=== PATIENT | male | born 1935 | race Caucasian/White ===

== ENCOUNTER 2017-02-12 14:54 | Inpatient (IN) | payer MEDICARE, OTHER ==
[~2017-02-12] VITALS: Ht 175.3 cm; Wt 73.1 kg
[2017-02-12] MEDS ORDERED: PLAV1TAB2 PO (15:06)
[2017-02-12] MEDS ORDERED: NIAC250T3 PO (15:06)
[2017-02-12] MEDS ORDERED: LIPI10TA PO (15:06)
[2017-02-12] MEDS ORDERED: METO1TAB32 PO (15:06)
[2017-02-12] MEDS ORDERED: FOLI5INJ2 SC (15:06)
[2017-02-12] MEDS ORDERED: ECOT81TA5 PO (15:06)
[2017-02-12] MEDS ORDERED: PRESCAP PO (15:06)
[2017-02-12] MEDS ORDERED: VITA100067 PO (15:06)
[2017-02-12] MEDS ORDERED: LEVO50TA5 PO (15:06)
[2017-02-12] MEDS ORDERED: FISH1000 PO (15:06)
[2017-02-12] MEDS ORDERED: VITA100T20 PO (15:06)
[2017-02-12] MEDS ORDERED: VITA400C97 PO (15:06)
[2017-02-12] MEDS ORDERED: NS 500 ML IV ONE (15:30)
[2017-02-12] MEDS: NS 1,000 ML IV SCH (15:45)
[2017-02-12 15:49] LABS: BASO % 0.3 % (0.0-1.0); EOS # 0.2 K/mm3 (0.0-0.50); EOS % 1.5 % (0.0-3.0); LARGE UNSTAINED CELL # 0.1 K/mm3 (0.0-0.4); LARGE UNSTAINED CELL % 0.7 % (0.0-4.0); LYMPH # 0.7 K/mm3 (1.5-4.5); LYMPH % 7.6 % (24.0-44.0); MEAN CORPUSCULAR HEMOGLOBIN 29.6 pg (27.0-33.0); MEAN CORPUSCULAR HGB CONC 32.5 g/dl (32.0-36.5); MEAN CORPUSCULAR VOLUME 91.1 fl (80.0-96.0); MONO # 0.5 K/mm3 (0.0-0.8); NEUTROPHILS # 8.2 K/mm3 (1.8-7.7); NEUTROPHILS % 84.8 % (36.0-66.0); PLATELET COUNT, AUTOMATED 263 k/mm3 (150-450); RED CELL DISTRIBUTION WIDTH 14.4 % (11.5-14.5); WHITE BLOOD COUNT 9.7 K/mm3 (4.0-10.0)
[2017-02-12 15:56] LABS: INR 1.11
[2017-02-12 16:20] LABS: ALBUMIN 3.5 GM/DL (3.2-5.2); ALBUMIN/GLOBULIN RATIO 0.92 (1.00-1.93); ALKALINE PHOSPHATASE 125 U/L (45-117); ALT/SGPT 28 U/L (12-78); AMYLASE 52 U/L (25-115); ANION GAP 9 MEQ/L (8-16); AST/SGOT 22 U/L (15-37); BILIRUBIN,DIRECT 0.2 MG/DL (0.0-0.2); BILIRUBIN,TOTAL 0.6 MG/DL (0.2-1.0); BLOOD UREA NITROGEN 21 MG/DL (7-18); CARBON DIOXIDE LEVEL 27 MEQ/L (21-32); CHLORIDE LEVEL 102 MEQ/L (98-107); CREATININE FOR GFR 1.27 MG/DL (0.70-1.30); GLOMERULAR FILTRATION RATE 57.8 (>35); GLUCOSE, FASTING 116 MG/DL (83-110); POTASSIUM SERUM 4.6 MEQ/L (3.5-5.1); SODIUM LEVEL 138 MEQ/L (136-145); TOTAL PROTEIN 7.3 GM/DL (6.4-8.2)
[2017-02-12] MEDS ORDERED: ISOVUE-370 76% 100ML VIAL (Q9967) As Ordered ONE (16:25)
--- NOTE | 2017-02-12 16:28 | REP ---
Acute abdominal series three views and PA chest and supine and upright abdomen: PA chest: Comparison is 01/14/2016. There is an indwelling central venous catheter entering from left with the tip in the superior vena cava, unchanged. The lung barrientos are clear. Cardiac size is normal. The mariama, mediastinum, and bony thorax are unchanged. There is no free subdiaphragmatic air. Impression: No acute cardiopulmonary findings. Indwelling central venous catheter. Abdomen, supine and upright views: There are no comparisons. There are dilated small bowel loops with multiple air-fluid levels. This is nonspecific and could represent ileus or obstruction. 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 Impression: Ileus versus small bowel obstruction. Signed by Zeb Meneses MD 02/12/2017 04:19 P
--- NOTE | 2017-02-12 17:07 | REP ---
CT of the abdomen and pelvis with IV contrast, without bowel contrast: There is a 87.6 cm mass centrally in the mesentery tethering of bowel loops. The proximal and mid jejunal loops are dilated and contain multiple air-fluid levels. The distal ileal loops are not dilated. Findings are compatible with small bowel obstruction. The colon is not dilated. However, there is wall thickening of the ascending colon, particularly at the hepatic flexure. This is nonspecific and could represent colitis or possibly neoplasm. The visualized lung barrientos are unremarkable. The hepatic parenchyma, gallbladder, pancreas and spleen are unremarkable. The adrenals, kidneys and abdominal aorta are unremarkable. There is no periaortic adenopathy. There is no ascites. No mesenteric adenopathy. Pelvis: There is a sigmoid and descending colon diverticulosis without diverticulitis. There is no ascites. The bladder is unremarkable. There is no pelvic adenopathy. There are heavy trabeculae throughout the sacrum interspersed with lucencies. This is nonspecific and could represent metastatic disease or possibly Paget's disease. 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 There is obstruction of the mid and proximal small bowel. The distal ileal loops are not dilated. There is an abnormal mucosal pattern of the colonic hepatic flexure which could represent neoplasm or colitis. No ascites or adenopathy. Unusual trabecular pattern of the sacrum which could be Paget's disease or metastatic disease. Signed by Zeb Meneses MD 02/12/2017 04:58 P
[2017-02-12] MEDS ORDERED: MORPHINE 2 MG/ML 1ML SYRINGE IV ONE (17:15)
[2017-02-12] MEDS ORDERED: ONDANSETRON 4MG/2ML VIAL (J2405) IV PRN (18:15)
--- NOTE | 2017-02-12 18:29 | ECGEPIP ---
Stationary ECG Study [facility] - ED Test Date: 2017-02-12 Pat Name: BIJAL BOWLES Department: Room: - Gender: M Activity Manager: rn : 1935 Requested By: ANJUM ANDUJAR Order Number: [id number] Reading MD: Karen Dowd Measurements Intervals [place] Rate: 88 P: 60 PA: 218 QRS: 13 QRSD: 130 T: 94 QT: 367 QTc: 446 Interpretive Statements SINUS RHYTHM WITH FIRST DEGREE AV BLOCK LEFT BUNDLE BRANCH BLOCK INCREASED RATE 01/14/16 Electronically Signed On 02-12-2017 18:28:57 EDT by Karen Dowd
[2017-02-12] MEDS ORDERED: NIAC500T5 PO (19:15)
[2017-02-12] MEDS ORDERED: VITA500T53 PO (19:15)
[2017-02-12] MEDS ORDERED: FOLI1TAB4 PO (19:15)
[2017-02-12 20:25] VITALS: BP 158/68
[2017-02-12] MEDS: PANTOPRAZOLE 40MG INJ (PROTONIX) (C9113) IV SCH (20:58)
[2017-02-12] MEDS: MORPHINE 2 MG/ML 1ML SYRINGE IV PRN (20:59)
[2017-02-12] MEDS: HEPARIN SOD (PORCINE) 5000 UNITS/ML VIAL SC SCH (20:59)
--- NOTE | 2017-02-12 22:02 | HPEPDOC ---
General Date of Admission Feb 12, 2017 at 18:05 Other Providers Consults: Dr. Zeb Ceballos of General Surgery Attending Physician: LACY BIRD MD Chief Complaint The patient is a 81-year-old male admitted with a reason for visit of Mesenteric Mass,Sbo(Small Bowel Obstruction). Source: Patient History of Present Illness PRIMARY CARE PROVIDER: Dr. Shanita Benites ([phone]) in [place], [place] CHIEF COMPLAINT: abdominal pain HISTORY OF PRESENT ILLNESS: Mr. Norman is an 81 year old gentleman from [place] ([facility] [place] [facility] who presents to the [facility] ED for worsening and uncontrolled abdominal pain. It first began on Tuesday night. States he also had it most of the day Tuesday. Then, in the late afternoon on Tuesday , it became better. All day , he denies having abdominal pain. Tuesday evening, patient began to have the abdominal pain again, which was constant and did not improve. Abdominal pain was an 8-9/10 in intensity, located in center of the stomach with no radiation of the pain, burning and aching in quality, and made him feel sick to his stomach. Patient states it began at 10:30 PM Tuesday evening, he went to bed, could not sleep due to the pain in his stomach. He then, sat up in his chair and couch, got up, walked around, but the pain would not subside. States he also did not eat anything much Tuesday as he could not tolerate PO. He also states that he took two painkillers (does not recall the name) which did not help with the pain. He then proceeded to call his family , called his brother, and his nephew brought him to the ED around 2:30 PM today. In addition, he states around 1:30 PM, he became real hot and clammy, started sweating and having dizziness before coming here. Denied nausea, but had nausea later in the ED when I was interviewing patient, and had a bout of bilious emesis after NG tube placement. ROS: Tuesday, admits he had diarrhea and had several bowel movements which were nonbloody. States last BM was Tuesday, however, he tried to pass stool on Tuesday, but all he got was a little watery stool/"diarrhea". Denies fevers, chills, chest pain, SOB, nausea currently but was nauseous earlier, vomiting before and after his one bout of emesis in the ED after NG tube placement, hemoptysis, hematemesis, edema, dysuria, hematuria. Admits to a ~25 lbs weight loss from July 2016 until now. States that he used to weigh 182 lbs and was steady at this weight and last he remembers is he was ~160 lbs. States he believes he is now below this weight. Recalls that every time he went to his PCP 's office, he dropped weight. It was a gradual weight loss and not immediate such as occurring over the course of the month. He denies night sweats. He admits to a recent loss of appetite. In the ED, they gave 2 mg morphine sulfate after which patient states his pain improved a bit and came down to about a 2/10. He was also administered a 500 mL bolus of normal saline, and then placed on normal saline IVF @ 100 mLs/hr. There is a backstory to that which is stated above. However, exact timeline of events/events may be inaccurately stated as I do not have medical records from [place] for patient and patient fluctuates back and forth in his story as to when certain events occurred. Please see below: In 2010, patient states he had lymph nodes in his R side of his neck and had Non -Hodgkin's lymphoma for which he underwent chemotherapy (has a chemo port on his L upper chest) and radiation. Now, he is in remission for that supposedly. Then, he states, he periodically underwent several CT and PET scans, during which they eventually found 3 lymph nodes in the abdomen (believes this was during a PET scan in 2012). States that this was followed with scans periodically, and every time, the lymph nodes measured to be bigger in cm size. Then, he had a CT scan of the abdomen in October 2015 and results in November 2015 had shown the lymph nodes were even bigger. He then told his oncologist that he would like to go up to visit his [facility] [place], but his oncologist decided to give him 20 treatments of radiation before he went. The radiation treatments occurred in November and ended in December 2015. Then, he came up to his [facility]. During the summertime December 2015, patient began to notice stomach problems: no appetite, stomach pain, and same symptoms as he is suffering through now. States before the radiation therapy, he did not have any of these symptoms. In addition, in March 2016, he went back to [place] and another PET scan was done, which did not seem to change. His oncologist wanted him to get another scan in 5 weeks, however, he went to his family doctor, who told him she thought he should get a 2nd opinion. He then went to another oncologist who wanted to identify a diagnosis of the lymph nodes in the abdomen. In March/April of 2016, the 2nd oncologist decided to do 3 needle biopsies of the abdominal lymph nodes which turned out to be negative/indefinitive. Patient then started having severe abdominal pain and his PCP admitted him to [facility] in July 2016, where his PCP arranged a diagnostic laparoscopy with surgeon who took several tissue samples which were negative for cancer. Laparascopy seems to have been done August 2016 according to patient. After discharge from hospital, in July 2016, CT scans were done and a PET scan was done. 2nd oncologist told him that he had scar tissue wrapped around his small intestine and there was a large mass in there. States "scope"(likely diagnostic laparascopy) was done in August 2016 in which several tissue samples were negative. Please note: there may have only been one "scope" as patient does not recall exact timeline of events. Then, PCP told patient that there was nothing much that they could do, and stated that if he could eat and go to the bathroom , that was the best that they could expect. 2nd oncologist also told him that he had to live with it. Surgeon told him that he could not operate on it. 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, in remission Patient offers no other medical conditions--please refer to medication list below for likely PMH until we can obtain further records PAST SURGICAL HISTORY: Cardiac Stent in 2006 Diagnostic Laparoscopy August 2016 MEDICATIONS: Plavix 75 mg Lipitor Synthroid Folic Acid Niacin Protonix Fish oil Vitamin B12 Vitamin D Vitamin E Aspirin 81 mg Preser vision Metoprolol Please see below for dosages and frequency ALLERGIES: Denies SOCIAL HISTORY: Smoked <1 PPD x 35 years Quit smoking 23 years ago EtOH: was never heavy drinker, will drink socially No illicit drug use No pets 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 Will be residing at his brother's house locally now with his who has Alzheimer's disease Comes up to [place] during [place] to his summer cottage Lives in [place] FAMILY HISTORY: Father: Parkinson's disease, CVA Mother: Type 2 DM, amputations, heart disease Brother: 85 yo, Type I diabetes, 2 open heart surgeries, 2 shoulder operations, abdominal hernia repair CODE STATUS: FULL CODE REVIEW OF SYSTEMS: All ROS were negative except for those as stated above in HPI. PHYSICAL EXAMINATION: Please see VS and PE below. Patient was afebrile and his VSS were stable LABORATORY DATA: WBC 9.7, Hgb 12, Hct 37, platelets 263, RBC 4.06, Neut% 84.8, Lymph% 7.6, Neut # 8.2, lymph# 0.7. BUN 21, Cr 1.27, GFR 57.8, glucose 116, lactic acid 1.3, alkaline phosphatase 125, amylase 52, lipase 129, troponin I <0.02, PT 14.5, INR 1.11, APTT 34.8 UA: 1+ protein, trace ketones, 9 RBCs, 1+bacteria, 1 squamous epithelial cell, small mucous MICROBIOLOGY: Blood cx x 2 pending Urine cx pending ELECTROCARDIOGRAM: Sinus rhythm with first degree AV block, old L bundle branch block, rate 88 bpm , AL interval 218 ms, QRS duration 130 ms, QTc 413 ms, no acute ST-T wae changes Similar to prior EKG on 01/13/17 RADIOLOGY: Abdominal Flat/Upright/PA Chest X-ray: No acute cardiopulmonary findings. Indwelling central venous catheter. Dilated small bowel loops with multiple air-fluid levels. R hip osteoarthritis. Impression: ileus vs. small bowel obstruction. CT abdomen/pelvis with IV contrast only: Findings compatible with small bowel obstruction. Wall thickening of the ascending colon, particularly at the hepatic flexure: is nonspecific and could represent colitis or possibly neoplasm. There is no ascites. No mesenteric adenopathy. 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 There is obstruction of the mid and proximal small bowel. The distal ileal loops are not dilated. There is an abnormal mucosal pattern of the colonic hepatic flexure which could represent neoplasm or colitis. No ascites or adenopathy. Unusual trabecular pattern of the sacrum which could be Paget's disease or metastatic disease ASSESSMENT/PLAN: This is an 81 yo M with a PMH of Nonhodgkin's lymphoma with radiation/ chemotherapy in 2010 to R neck lymph node in remission, CAD status-post stent in 2006, hypothyroidism, and possible unknown medical hx as his medical records are in [place]. Comes [facility] in [place]. He presents to [facility] ED for constant unremitting abdominal pain. CT scan findings are consistent with small bowel obstruction. CT scan of the abdomen/pelvis also shows a 7.6 cm mesenteric mass centrally in the mesentery resulting in tethering of the adjacent small bowel loops. There is obstruction of the mid and proximal small bowel. The distal ileal loops are not dilated. There is an abnormal mucosal pattern of the colonic hepatic flexure which could represent neoplasm or colitis. No ascites or adenopathy. We are admitting the patient for treatment for unrelenting abdominal pain secondary to small bowel obstruction. -Small Bowel Obstruction related to 7.6 cm central mesenteric mass resulting in tethering of adjacent small bowel loops: NPO, bowel rest, NG tube, IVF with NS @ 100 mLs/hr. Follow CBCs, BMPs, Mg daily. Morphine IV 2 mg q2h PRN pain. Zofran IV 4 mg q6h PRN nausea/vomiting. Advance diet as tolerated. Dr. Zeb Ceballos of General Surgery has been consulted and has seen patient. He informed patient that we will treat SBO with conservative measures at first. If this does not resolve bowel obstruction within 72 hours, patient will likely need to be transferred to [facility] for possible surgery for lysis of adhesions or further exploration of scar tissue of mass and surgical treatment. Blood cx and urine cx are pending. Hold all home medications for now except for metoprolol and synthroid. Highly appreciate Dr. Ceballos's input into this case. -We will continue metoprolol and synthroid, clamp NG tube to administer medication and wait half an hour to unclamp NG tube after medication administration. -Will plan to obtain medical records from [place] for accurate hx on Tuesday. Chronic Medical Problem List: CAD status-post stent in 2006 Hypothyroidism Nonhodgkin's Lymphoma (R neck lymph node) status-post radiation/chemotherapy in 2011, in remission Patient offers no other medical conditions--please refer to medication list below for likely PMH until we can obtain further records DVT ppx: SC heparin GI ppx: protonix IV Immunizations as per protocol My preceptor for this patient encounter was Dr. Lacy Bird, and was physically present in the building during the encounter and was fully available. As needed , all aspects of the patient interview, examination, medical decision making process, and medical care plan development were reviewed and approved by the preceptor. Preceptor is aware and concurs with the plan as stated in the body of this note and will attest to such by his/her cosignature. Home Medications Scheduled (Preservision Areds) 1 Cap Cap, 1 CAP PO DAILY, (Reported) Aspirin (Ecotrin Low Strength) 81 Mg Tab, 81 MG PO QHS, (Reported) Atorvastatin Calcium (Lipitor) 10 Mg Tab, 10 MG PO QHS, (Reported) Clopidogrel Bisulfate (Plavix) 75 Mg Tab, 75 MG PO DAILY, (Reported) Cyanocobalamin (Vitamin B12) 500 Mcg Tab, 500 MCG PO DAILY, (Reported) Fish Oil (Fish Oil) 1,000 Mg Cap, 1,000 MG PO DAILY, (Reported) Folic Acid (Folic Acid) 1 Mg Tab, 1 MG PO DAILY, (Reported) Levothyroxine Sodium (Synthroid) 50 Mcg Tab, 50 MCG PO DAILY, (Reported) Metoprolol Succinate (Metoprolol Succinate ER) 25 Mg Tab, 12.5 MG PO DAILY, ( Reported) Niacin (Niacin) 500 Mg Tab, 500 MG PO DAILY, (Reported) Vitamin D (Vitamin D) 1,000 Unit Cap, 1,000 UNIT PO DAILY, (Reported) Vitamin E (Vitamin E Complex) 400 Unit Cap, 400 UNIT PO DAILY, (Reported) Allergies Coded Allergies: No Known Allergies (Unverified , 02/12/17) Physical Examination General Exam: Positive: Alert, Cooperative, No Acute Distress Eye Exam: Positive: Conjunctiva & lids normal ENT Exam: Positive: Atraumatic Neck Exam: Positive: Supple, Negative: JVD, thyromegaly Chest Exam: Positive: Clear to auscultation, Negative: Rales, Rhonchi, Wheezing Heart Exam: Positive: Rate Normal, Regular Rhythm, Normal S1, Normal S2 Abdomen Exam: Positive: Normal bowel sounds, Tenderness (to palpation of mid- upper abdomen and central abdomen. No peritoneal signs. ), Other (distended abdomen with rigid palpable mass in central abdomen) Extremity Exam: Positive: Normal pulses, Negative: Clubbing, Cyanosis, Edema Skin Exam: Negative: Rash Neuro Exam: Positive: Normal Speech, Other (No focal neurologic deficits appreciated bilaterally.) Psych Exam: Positive: Mental status NL, Mood NL, Memory Intact, Oriented x 3 Vital Signs Vital Signs Date Time Temp Pulse Resp B/P (MAP) Pulse Ox O2 Delivery O2 Flow Rate FiO2 02/12/17 20:59 98.4 89 21 158/68 98 Room Air Laboratory Data Labs 24H Laboratory Tests 2 02/12/17 15:35: White Blood Count 9.7, Red Blood Count 4.06L, Hemoglobin 12.0L, Hematocrit 37.0L , Mean Corpuscular Volume 91.1, Mean Corpuscular Hemoglobin 29.6, Mean Corpuscular Hemoglobin Concent 32.5, Red Cell Distribution Width 14.4, Platelet Count 263, Neutrophils (%) (Auto) 84.8H, Lymphocytes (%) (Auto) 7.6L, Monocytes (%) (Auto) 5.0, Eosinophils (%) (Auto) 1.5, Basophils (%) (Auto) 0.3, Neutrophils # (Auto) 8.2H, Lymphocytes # (Auto) 0.7L, Monocytes # (Auto) 0.5, Eosinophils # (Auto) 0.2, Basophils # (Auto) 0.0, Large Unclassified Cells % 0.7 , Large Unclassified Cells # 0.1, Prothrombin Time 14.5, Prothromb Time International Ratio 1.11, Activated Partial Thromboplast Time 34.8, Urine Appearance CLEAR, Urine Color YELLOW, Urine pH 5.0, Urine Specific [place] 1.025 , Urine Protein 1+H, Urine Glucose (UA) NEGATIVE, Urine Ketones TRACEH, Urine Urobilinogen 0.2, Urine Bilirubin NEGATIVE, Urine Leukocyte Esterase NEGATIVE, Urine Blood NEGATIVE, Urine Nitrite NEGATIVE, Urine WBC (Auto) 2, Urine RBC ( Auto) 9H, Urine Hyaline Casts (Auto) 4, Urine Bacteria (Auto) 1+H, Urine Squamous Epithelial Cells 1, Urine Mucus (Auto) SMALL, Urine Sperm (Auto) , Anion Gap 9, Glomerular Filtration Rate 57.8, Lactic Acid Level 1.3, Calcium Level 9.0, Aspartate Amino Transf (AST/SGOT) 22, Alanine Aminotransferase (ALT/ SGPT) 28, Alkaline Phosphatase 125H, Total Bilirubin 0.6, Direct Bilirubin 0.2, Total Creatine Kinase 54, Creatine Kinase MB 1.0, Creatine Kinase MB Relative Index 1.85, Troponin I < 0.02, Total Protein 7.3, Albumin 3.5, Albumin/Globulin Ratio 0.92L, Amylase Level 52, Lipase 129 CBC/BMP Laboratory Tests 02/12/17 15:35 Red Blood Count 4.06 L, Mean Corpuscular Volume 91.1, Mean Corpuscular Hemoglobin 29.6, Mean Corpuscular Hemoglobin Concent 32.5, Red Cell Distribution Width 14.4, Neutrophils (%) (Auto) 84.8 H, Lymphocytes (%) (Auto) 7.6 L, Monocytes (%) (Auto) 5.0, Eosinophils (%) (Auto) 1.5, Basophils (%) (Auto ) 0.3, Neutrophils # (Auto) 8.2 H, Lymphocytes # (Auto) 0.7 L, Monocytes # (Auto ) 0.5, Eosinophils # (Auto) 0.2, Basophils # (Auto) 0.0 Microbiology Microbiology 02/12/17 Blood Culture, Received Pending 02/12/17 Blood Culture, Received Pending 02/12/17 Urine Culture, Received Pending Plan / VTE VTE Prophylaxis Ordered?: Yes (SC heparin) JESSENIA PANDYA OGME-1 Feb 12, 2017 21:29
[2017-02-13] MEDS: NS 1,000 ML IV SCH ×3 (03:26→22:58)
[2017-02-13 05:39] LABS: BASO % 0.1 % (0.0-1.0); EOS # 0.1 K/mm3 (0.0-0.50); EOS % 1.1 % (0.0-3.0); LARGE UNSTAINED CELL # 0.1 K/mm3 (0.0-0.4); LARGE UNSTAINED CELL % 0.9 % (0.0-4.0); LYMPH # 0.6 K/mm3 (1.5-4.5); MEAN CORPUSCULAR HEMOGLOBIN 29.6 pg (27.0-33.0); MEAN CORPUSCULAR HGB CONC 31.9 g/dl (32.0-36.5); MONO # 0.5 K/mm3 (0.0-0.8); MONO % 7.7 % (0.0-5.0); NEUTROPHILS # 5.6 K/mm3 (1.8-7.7); NEUTROPHILS % 82.2 % (36.0-66.0); PLATELET COUNT, AUTOMATED 193 k/mm3 (150-450); RED CELL DISTRIBUTION WIDTH 14.9 % (11.5-14.5); WHITE BLOOD COUNT 6.9 K/mm3 (4.0-10.0)
[2017-02-13 05:56] LABS: ANION GAP 7 MEQ/L (8-16); BLOOD UREA NITROGEN 20 MG/DL (7-18); CALCIUM LEVEL 7.7 MG/DL (8.8-10.2); CARBON DIOXIDE LEVEL 26 MEQ/L (21-32); CHLORIDE LEVEL 109 MEQ/L (98-107); CREATININE FOR GFR 1.05 MG/DL (0.70-1.30); GLOMERULAR FILTRATION RATE > 60.0 (>35); GLUCOSE, FASTING 113 MG/DL (83-110); MAGNESIUM LEVEL 2.2 MG/DL (1.8-2.4); PHOSPHORUS LEVEL 2.7 MG/DL (2.5-4.9); POTASSIUM SERUM 4.6 MEQ/L (3.5-5.1); SODIUM LEVEL 142 MEQ/L (136-145)
[2017-02-13 06:00] VITALS: BP 117/58
[2017-02-13 08:51] VITALS: BP 130/61
[2017-02-13] MEDS: METOPROLOL SUCC *XL* 25MG TAB (TopROL *XL*) PO SCH (08:53)
[2017-02-13] MEDS: LEVOTHYROXINE 50MCG TABLET (0.05MG) PO SCH (08:53)
[2017-02-13] MEDS: HEPARIN SOD (PORCINE) 5000 UNITS/ML VIAL SC SCH ×2 (08:54→20:21)
[2017-02-13 14:00] VITALS: BP 149/65
--- NOTE | 2017-02-13 19:37 | CR ---
DATE OF CONSULTATION: 02/13/2017 REASON FOR CONSULTATION: Abdominal distension. HISTORY OF PRESENT ILLNESS: Patient is an 81-year-old male who comes up from [place] to [place]. He started to have uncontrolled abdominal pain starting earlier in the week. It got slightly better by and then returned Tuesday evening. He came in to the hospital yesterday due to abdominal pain that was increasing, associated with some nausea, no vomiting. He was still passing flatus and having bowel movements, but mainly because of the increasing pain is why he came to the emergency room. On admission, his vitals were stable. Labs were normal including white count and lactic acid; however, CAT scan shows a significant mass in the center of the small bowel mesentery. After discussion, the patient states he was treated with radiation a year and one-half ago for large lymph nodes in his abdomen. He had 20 treatments of radiation for that. Since then, he has had problems with this mass forming in his mesentery. He had a laparoscopy done August of this year down in [place] because of the mass, to evaluate his small bowel and the surgeon there told him that there is nothing that could be done because of all of the tissue that was involved. Since then he has been doing okay. He has not had any problems with small bowel obstructions previous to this. No other surgeries to his abdomen. PAST MEDICAL HISTORY: 1. Coronary artery disease. 2. Hypothyroidism. 3. Non-Hodgkin's lymphoma to the right neck status post chemotherapy and radiation 2010. PAST SURGICAL HISTORY: 1. Diagnostic laparoscopy August of this year. 2. Cardiac stent placement. HOME MEDICATIONS: Please see medication reconciliation. ALLERGIES: None. SOCIAL HISTORY: Denies current drug, alcohol or tobacco abuse. FAMILY HISTORY: Noncontributory. REVIEW OF SYSTEMS: Pertinent positives and negatives as stated in the history of present illness (HPI). PHYSICAL EXAMINATION: GENERAL: Patient is awake, alert, no acute stress. VITAL SIGNS: Temperature 98, pulse 92, respirations 18, blood pressure 130/61, pulse oximetry 95% room air. HEENT: Pupils equal, round, reactive to light accommodation. HEART: S1, S2. Regular rate and rhythm. LUNGS: Clear to auscultation bilaterally. ABDOMEN: Soft, distended. Diffuse mild tenderness. No rebounding, guarding or rigidity. There is some fullness in the center of the abdomen that is hard, likely related to this mesenteric mass. EXTREMITIES: No clubbing, cyanosis or edema. LABORATORY DATA: White count 9.7, hemoglobin 12. Lactic acid 1.3, potassium 4.6. IMAGING: CT abdomen and pelvis with contrast shows an 7.6 cm mesenteric mass centrally in the mesentery resulting in tethering of the adjacent small bowel loops. There is obstruction of the mid and proximal small bowel. Distal ileal loops are not dilated. There is abnormal mucosal pattern of the colonic hepatic flexure which could represent neoplasm versus colitis. There is also unusual trabecular pattern of the sacrum which could be related to Paget's disease or metastatic disease. 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 Surgery down in [place] in August resulted in the fact that this mass was there and was involving the small bowel in that it was likely inoperable. At this time, patient is having signs of partial versus complete bowel obstruction because of this, mainly in the mid to proximal small bowel. Recommendation at this time is to treat him conservatively with IV fluids, antibiotics for possible enteritis and colitis, as well as nasogastric (NG) tube decompression. We will continue to monitor the patient closely. At this poin, I have no back up, so if he does start to develop signs of peritonitis, increasing pain, increasing lactic acid, anything that may suggest that he is having an ischemic episode that will require urgent surgery, he will need immediate transfer to a tertiary care facility. Otherwise, we will continue to treat him medically and see if he will improve on his own within the next 3-5 days. If he does not open up on his own, then we may offer him a diagnostic surgery versus transfer to a tertiary care facility. I will discuss that further with my partners once they return on Tuesday to get some of their input as well.
[2017-02-13] MEDS: PANTOPRAZOLE 40MG INJ (PROTONIX) (C9113) IV SCH (20:21)
[2017-02-13 22:00] VITALS: BP 125/59
--- NOTE | 2017-02-13 22:40 | IPN ---
DATE: 02/13/2017 SUBJECTIVE: The patient reports that he is doing better today. He tells me that his abdominal pain has improved. He has passed some gas but no bowel movement. He denies any chest pain, shortness of breath, fevers, chills, nausea or vomiting. OBJECTIVE: VITAL SIGNS: Temperature 98, pulse 92, respiratory rate 18, blood pressure 130/72. GENERAL: He is a very pleasant, elderly, man who sits up to great me as I enter the room. He does not appear to be in any acute distress. HEENT: He has a nasogastric tube draining clear serous fluid. No elevation of central venous pressure. He has moist mucous membranes. NEUROLOGIC: Cranial nerves II-XII are grossly intact. CARDIOVASCULAR: S1, S2, regular. RESPIRATORY: Clear. ABDOMEN: Bowel sounds are present but diminished. Abdomen is soft and nontender. He has a palpable midline mass in the abdomen. EXTREMITIES: No clubbing, cyanosis, or edema. LABORATORY STUDIES: WBC 6.9 down from 9.7, hemoglobin 10 down from 12, platelet count 193 down from 263. Chemistry panel: Sodium 142, potassium 4.6, chloride 109, bicarbonate 26, BUN 20, creatinine 1.0. INR is 1.1. Microbiology is currently pending. IMAGING STUDIES: The patient had abdominal x-ray which revealed ileus versus small bowel obstruction. 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 There is obstruction of the mid and proximal small bowel. The distal ileal loops are not dilated. ASSESSMENT AND PLAN: This is an 81-year-old man with a small bowel obstruction. PROBLEMS: 1. Small bowel obstruction, possibly related to numerous abdominal procedures, adhesions versus radiation. Regardless, the patient does appear to be improving with supportive measures. General surgery's help is greatly appreciated. Should the patient continue to progress, we can consider clear liquid and after he has bowel movements consider removing his nasogastric (NG) tube. I suspect he will be able to get through this episode without an operative intervention. However, should he fail to progress or have recurrence, we should likely reconsider the necessity for surgery. He remains on IV fluids, pain control, antiemetics. 2. Coronary artery disease. He is on a beta yaquelin. His aspirin and statin were currently held as was his Plavix at the time of admission. 3. Non-Hodgkin's lymphoma. He has had numerous biopsies which are negative. 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 I recommend that he continue with scheduled outpatient followup with them. 4. B12 deficiency and vitamin D deficiency. Supplementation is currently on hold. 5. Hypothyroidism. He is on Synthroid. 6. Deep vein thrombosis (DVT) prophylaxis. He is on heparin.
[2017-02-14] MEDS: MORPHINE 2 MG/ML 1ML SYRINGE IV PRN (04:17)
[2017-02-14 06:00] VITALS: BP 110/55
[2017-02-14] MEDS: LEVOTHYROXINE 50MCG TABLET (0.05MG) PO SCH ×2 (06:00→09:25)
[2017-02-14 06:09] LABS: LYMPH % 7.1 % (24.0-44.0); MEAN CORPUSCULAR HEMOGLOBIN 29.6 pg (27.0-33.0); MEAN CORPUSCULAR HGB CONC 31.6 g/dl (32.0-36.5); MEAN CORPUSCULAR VOLUME 93.6 fl (80.0-96.0); MONO % 6.8 % (0.0-5.0); NEUTROPHILS % 83.3 % (36.0-66.0); PLATELET COUNT, AUTOMATED 174 k/mm3 (150-450); RED CELL DISTRIBUTION WIDTH 14.8 % (11.5-14.5); WHITE BLOOD COUNT 6.1 K/mm3 (4.0-10.0)
[2017-02-14 06:10] LABS: BASO % 0.2 % (0.0-1.0); EOS # 0.1 K/mm3 (0.0-0.50); LARGE UNSTAINED CELL # 0.1 K/mm3 (0.0-0.4); LARGE UNSTAINED CELL % 1.6 % (0.0-4.0); LYMPH # 0.5 K/mm3 (1.5-4.5); MONO # 0.4 K/mm3 (0.0-0.8); NEUTROPHILS # 5.1 K/mm3 (1.8-7.7)
[2017-02-14 06:29] LABS: ANION GAP 10 MEQ/L (8-16); BLOOD UREA NITROGEN 17 MG/DL (7-18); CALCIUM LEVEL 7.8 MG/DL (8.8-10.2); CARBON DIOXIDE LEVEL 23 MEQ/L (21-32); CHLORIDE LEVEL 111 MEQ/L (98-107); CREATININE FOR GFR 1.02 MG/DL (0.70-1.30); GLOMERULAR FILTRATION RATE > 60.0 (>35); GLUCOSE, FASTING 86 MG/DL (83-110); MAGNESIUM LEVEL 2.1 MG/DL (1.8-2.4); POTASSIUM SERUM 4.2 MEQ/L (3.5-5.1); SODIUM LEVEL 144 MEQ/L (136-145)
[2017-02-14 08:30] VITALS: BP 122/56
[2017-02-14] MEDS: CIPROFLOXACIN 400 MG in APPROPRIATE DILUENT 1 EA IV SCH ×2 (08:59→21:34)
[2017-02-14] MEDS: METOPROLOL SUCC *XL* 25MG TAB (TopROL *XL*) PO SCH (09:00)
[2017-02-14] MEDS: HEPARIN SOD (PORCINE) 5000 UNITS/ML VIAL SC SCH ×2 (09:26→21:34)
[2017-02-14] MEDS: metroNIDAZOLE 500 MG in APPROPRIATE DILUENT 1 EA IV SCH ×2 (10:00→17:37)
--- NOTE | 2017-02-14 12:34 | REP ---
Chest, single PA view: Comparison is 02/12/2017. There is a small subsegmental infiltrate above the dome of the left hemidiaphragm as an interval change. The remainder of the lung barrientos are clear. Cardiac size is normal. The mariama, mediastinum, and bony thorax are unremarkable. An indwelling left subclavian central venous catheter is again identified in satisfactory position, unchanged. Impression: New subsegmental infiltrate above the dome of the left hemidiaphragm. Signed by Zeb Meneses MD 02/14/2017 12:26 P
[2017-02-14 14:00] VITALS: BP 102/58
[2017-02-14] MEDS: PANTOPRAZOLE 40MG INJ (PROTONIX) (C9113) IV SCH (21:34)
--- NOTE | 2017-02-14 21:36 | IPNPDOC ---
Text Note Date of Service The patient was seen on 02/14/17. NOTE Subjective: Patient seen and examined sitting up in chair. Denies fevers, chills, dizziness , headache, chest pain, SOB, cough, nausea, vomiting, diarrhea. Admits to not having a bowel movement for 4 days, but admits to passing flatus. Admits to some abdominal discomfort and pain. Admits that he feels better than he did upon admission. Objective: Please see VS and physical examination below. Of note, patient did spike a fever of 101.5 at 2200 on 02/13, currently afebrile at 98.1. BMs: 0 yesterday and 0 today. Laboratory data: Labs were remarkable for Hgb of 9.1 from 10 yesterday and Hct of 28.7 from 31.3 yesterday. BMP was WNL. Microbiology: Blood cx: NGTD x 24h Urine cx: show no growth Imaging: CXR today: New subsegmental infiltrate above the dome of the left hemidiaphragm. Assessment/Plan: This is an 81 yo M with a PMH of Nonhodgkin's lymphoma with radiation/ chemotherapy in 2010 to R neck lymph node in remission, CAD status-post stent in 2006, hypothyroidism, and possible unknown medical hx as his medical records are in [place]. [facility] [place] He presents to [facility] ED for constant unremitting abdominal pain. CT scan findings are consistent with small bowel obstruction. CT scan of the abdomen/pelvis also shows a 7.6 cm mesenteric mass centrally in the mesentery resulting in tethering of the adjacent small bowel loops. There is obstruction of the mid and proximal small bowel. The distal ileal loops are not dilated. There is an abnormal mucosal pattern of the colonic hepatic flexure which could represent neoplasm or colitis. No ascites or adenopathy. We are admitting the patient for treatment for unrelenting abdominal pain secondary to small bowel obstruction. Chronic Medical Problem List: CAD status-post stent in 2006 Hypothyroidism Nonhodgkin's Lymphoma (R neck lymph node) status-post radiation/chemotherapy in 2010, in remission Patient offers no other medical conditions--please refer to medication list for likely PMH until we can obtain further records -Small Bowel Obstruction (partial vs. complete possibly related to numerous abdominal procedures vs. adhesions vs. radiation): Was found to have 7.6 cm central mesenteric mass resulting in tethering of adjacent small bowel loops: Has passed flatus. NG tube and IVF discontinued. Patient has been advanced to a clear liquids and ensure diet. Continue pain control and antiemetics as necessary. Follow CBCs, BMPs, Mg daily. Morphine IV 2 mg q2h PRN pain. Zofran IV 4 mg q6h PRN nausea/vomiting. Advance diet as tolerated. Dr. Zeb Ceballos of General Surgery has been consulted and has seen patient. He informed patient that we will treat SBO with conservative measures at first. If this does not resolve bowel obstruction within 72 hours to 5 days, patient will likely need to be transferred to [facility] for possible surgery for lysis of adhesions or further exploration of scar tissue of mass and surgical treatment. In addition, Dr. Ceballos informed me today that he had talked to Dr. Nick Santana , his partner, about the case, and Dr. Santana believes that it would be better that patient be transferred to [facility] if conservative measures fail for patient to have surgery. So far, bowel obstruction has not completely resolved, but NG tube has been discontinued. Blood cx show NGTD x 24h. Urine cx are negative. Hold all home medications for now except for metoprolol and synthroid. Highly appreciate Dr. Ceballos's input into this case. Will plan to obtain medical records from [place] for accurate hx. -Fever secondary to possible Hospital Acquired Pneumonia: Temperature of 101.5 at 2200 ON 02/13. CXR showed new subsegmental infiltrate above the dome of the L hemidiaphragm. Have begun empiric antibiotic treatment with IV ciprofloxacin q12h and metronidazole q8h. Redrew another set of blood cx. UA unremarkable. -Coronary artery disease s/p Stent in 2006: Continue metoprolol. His aspirin, plavix, and statin were were held at time of admission due to NPO status. We can likely resume these as he is now on a clear liquids diet. -Non-Hodgkin's lymphoma of R Neck s/p chemo/radiation in 2010, in remission (as per patient): Numerous biopsies have been reported to be negative by patient. 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 Will recommend outpatient followup for this diagnosis. -Hypothyroidism: continue levothyroxine. -Vitamin B12 deficiency: will resume supplementation if tolerates clear liquids diet. -Vitamin D deficiency: will resume supplementation if tolerates clear liquids diet. DVT ppx: SC heparin. FULL CODE STATUS Immunizations as per protocol My preceptor for this patient encounter was Dr. Elisabeth Mock, and was physically present in the building during the encounter and was fully available. As needed, all aspects of the patient interview, examination, medical decision making process, and medical care plan development were reviewed and approved by the preceptor. Preceptor is aware and concurs with the plan as stated in the body of this note and will attest to such by his/her cosignature. VS,Fishbone, I+O VS, Fishbone, I+O Laboratory Tests 02/14/17 05:44 Red Blood Count 3.06 L, Mean Corpuscular Volume 93.6, Mean Corpuscular Hemoglobin 29.6, Mean Corpuscular Hemoglobin Concent 31.6 L, Red Cell Distribution Width 14.8 H, Neutrophils (%) (Auto) 83.3 H, Lymphocytes (%) (Auto ) 7.1 L, Monocytes (%) (Auto) 6.8 H, Eosinophils (%) (Auto) 1.0, Basophils (%) ( Auto) 0.2, Neutrophils # (Auto) 5.1, Lymphocytes # (Auto) 0.5 L, Monocytes # ( Auto) 0.4, Eosinophils # (Auto) 0.1, Basophils # (Auto) 0.0, Calcium Level 7.8 L Vital Signs Date Time Temp Pulse Resp B/P (MAP) Pulse Ox O2 Delivery O2 Flow Rate FiO2 02/14/17 14:00 98.3 84 17 102/58 (73) 97 Room Air I&O- Last 24 Hours up to 6 AM 02/14/17 06:00 Intake Total 200 ml Output Total 250 ml Balance -50 ml Physical Examination Physical Examination Vital Signs/I&O Vital Signs Date Time Temp Pulse Resp B/P (MAP) Pulse Ox O2 Delivery O2 Flow Rate FiO2 02/14/17 14:00 98.3 84 17 102/58 (73) 97 Room Air I&O- Last 24 Hours up to 6 AM 02/14/17 06:00 Intake Total 200 ml Output Total 250 ml Balance -50 ml General Exam: Positive: alert, attentive, talkative, cooperative, no acute distress, oriented times three, other (pleasant elderly male) ENT EXAM: Positive: normocephalic, atraumatic Neck Exam: Positive: Supple Chest Exam: Positive: Clear to auscultation, Negative: Wheezing, Rales, Rhonchi Heart Exam: Positive: Regular rate and rhythm, Normal S1, S2 Abdominal Exam: Positive: Mass (hard palpable midine mass which is tender to palpation), BS Hypoactive, Other (less distended than on admission, tender to palpation in mid upper abdomen) Extremity Exam: Negative: Clubbing, Cyanosis, Edema Skin Exam: Positive: Warm, Dry, Negative: Rashes Neuro Exam: Positive: Normal Speech Psych Exam: Positive: Mental status NL, Mood NL, Memory Intact, Alert and oriented x 3 Laboratory Data Labs 24H Laboratory Tests 2 02/14/17 05:44: White Blood Count 6.1, Red Blood Count 3.06L, Hemoglobin 9.1L, Hematocrit 28.7L , Mean Corpuscular Volume 93.6, Mean Corpuscular Hemoglobin 29.6, Mean Corpuscular Hemoglobin Concent 31.6L, Red Cell Distribution Width 14.8H, Platelet Count 174, Neutrophils (%) (Auto) 83.3H, Lymphocytes (%) (Auto) 7.1L, Monocytes (%) (Auto) 6.8H, Eosinophils (%) (Auto) 1.0, Basophils (%) (Auto) 0.2 , Neutrophils # (Auto) 5.1, Lymphocytes # (Auto) 0.5L, Monocytes # (Auto) 0.4, Eosinophils # (Auto) 0.1, Basophils # (Auto) 0.0, Large Unclassified Cells % 1.6 , Large Unclassified Cells # 0.1, Anion Gap 10, Glomerular Filtration Rate > 60.0, Blood Urea Nitrogen 17, Creatinine 1.02, Sodium Level 144, Potassium Level 4.2, Chloride Level 111H, Carbon Dioxide Level 23, Calcium Level 7.8L, Magnesium Level 2.1 CBC/BMP Laboratory Tests 02/14/17 05:44 Red Blood Count 3.06 L, Mean Corpuscular Volume 93.6, Mean Corpuscular Hemoglobin 29.6, Mean Corpuscular Hemoglobin Concent 31.6 L, Red Cell Distribution Width 14.8 H, Neutrophils (%) (Auto) 83.3 H, Lymphocytes (%) (Auto ) 7.1 L, Monocytes (%) (Auto) 6.8 H, Eosinophils (%) (Auto) 1.0, Basophils (%) ( Auto) 0.2, Neutrophils # (Auto) 5.1, Lymphocytes # (Auto) 0.5 L, Monocytes # ( Auto) 0.4, Eosinophils # (Auto) 0.1, Basophils # (Auto) 0.0, Calcium Level 7.8 L Microbiology Microbiology 02/14/17 Blood Culture, Received Pending 02/12/17 Blood Culture - Preliminary, Resulted No Growth after 48 hours. All Specime... 02/12/17 Blood Culture - Preliminary, Resulted No Growth after 48 hours. All Specime... 02/12/17 Urine Culture - Final, Complete JESSENIA PANDYA OGME-1 Feb 14, 2017 21:12
[2017-02-14 22:00] VITALS: BP 100/55
[2017-02-15] VITALS: BP 100/55
[2017-02-15] MEDS: metroNIDAZOLE 500 MG in APPROPRIATE DILUENT 1 EA IV SCH (02:00)
[2017-02-15 06:00] VITALS: BP 113/55
[2017-02-15] MEDS: LEVOTHYROXINE 50MCG TABLET (0.05MG) PO SCH (06:00)
[2017-02-15 07:27] LABS: BASO % 0.2 % (0.0-1.0); EOS # 0.2 K/mm3 (0.0-0.50); EOS % 4.4 % (0.0-3.0); LARGE UNSTAINED CELL # 0.1 K/mm3 (0.0-0.4); LARGE UNSTAINED CELL % 1.6 % (0.0-4.0); LYMPH # 0.6 K/mm3 (1.5-4.5); LYMPH % 14.4 % (24.0-44.0); MEAN CORPUSCULAR HEMOGLOBIN 28.7 pg (27.0-33.0); MEAN CORPUSCULAR HGB CONC 30.6 g/dl (32.0-36.5); MEAN CORPUSCULAR VOLUME 93.7 fl (80.0-96.0); MONO # 0.3 K/mm3 (0.0-0.8); MONO % 8.1 % (0.0-5.0); NEUTROPHILS # 2.4 K/mm3 (1.8-7.7); NEUTROPHILS % 71.3 % (36.0-66.0); PLATELET COUNT, AUTOMATED 187 k/mm3 (150-450); RED CELL DISTRIBUTION WIDTH 14.8 % (11.5-14.5); WHITE BLOOD COUNT 3.4 K/mm3 (4.0-10.0)
[2017-02-15 07:28] LABS: ANION GAP 8 MEQ/L (8-16); BLOOD UREA NITROGEN 15 MG/DL (7-18); CALCIUM LEVEL 7.6 MG/DL (8.8-10.2); CARBON DIOXIDE LEVEL 24 MEQ/L (21-32); CHLORIDE LEVEL 112 MEQ/L (98-107); CREATININE FOR GFR 1.06 MG/DL (0.70-1.30); GLOMERULAR FILTRATION RATE > 60.0 (>35); GLUCOSE, FASTING 103 MG/DL (83-110); MAGNESIUM LEVEL 2.2 MG/DL (1.8-2.4); POTASSIUM SERUM 3.9 MEQ/L (3.5-5.1); SODIUM LEVEL 144 MEQ/L (136-145)
[2017-02-15] MEDS ORDERED: CIPR750T2 PO (10:20)
[2017-02-15] MEDS ORDERED: BACITAB PO (10:20)
[2017-02-15] MEDS ORDERED: TYLE325T5 PO (10:20)
[2017-02-15] MEDS ORDERED: ZOFR20TA PO (10:20)
[2017-02-15 10:30] VITALS: BP 94/52
[2017-02-15] MEDS: CIPROFLOXACIN 400 MG in APPROPRIATE DILUENT 1 EA IV SCH (10:30)
[2017-02-15] MEDS: METOPROLOL SUCC *XL* 25MG TAB (TopROL *XL*) PO SCH (10:30)
[2017-02-15] MEDS: HEPARIN SOD (PORCINE) 5000 UNITS/ML VIAL SC SCH (10:32)
--- NOTE | 2017-02-17 06:11 | DS.PDOC ---
Discharge Summary General Date of Admission Feb 12, 2017 at 18:05 Date of Discharge 02/15/17 Attending Physician: ZION OLIVIER DO Specialist/Consultants Involve: ZEB CEBALLOS DO Discharge Summary PCP: Dr. Shanita Benites ([phone]) in [place], [place] Consults: General Surgery Dr. Zeb Ceballos Discharge diagnosis: Small Bowel Obstruction CT scan of abdomen/pelvis findings: 7.6 cm mesenteric mass centrally in mesentery resulting in tethering of adjacent small bowel loops. Secondary diagnosis: Fever secondary to possible hospital acquired pneumonia with CXR findings of new subsegmental infiltrate above the dome of the L hemidiaphragm Coronary Artery Disease status-post stent in 2006 Nonhodgkin's Lymphoma status-post radiation/chemotherapy in 2010 to R neck lymph node in remission Vitamin B12 Deficiency Vitamin D Deficiency Hypothyroidism Hospital course: Mr. Norman is an 81 year old gentleman from [place] with a PMH significant for Nonhodgkin's lymphoma status-post radiation/chemotherapy in 2010 to R neck lymph node in remission as per patient, CAD s/p stent in 2006, hypothyroidism, vitamin b12 deficiency, vitamin D deficiency, and other possible unknown medical hx, ([facility] [place] [facility] who normally lives in [place] and is followed by PCP and oncologist in [place], presented to the [facility] ED for worsening and uncontrolled abdominal pain. Abdominal pain was an 8-9/ 10 in intensity, located in center of the stomach with no radiation of the pain , burning and aching in quality, and made him feel sick to his stomach. States he also did not eat anything and could not tolerate PO. He then proceeded to call his family, called his brother, and his nephew brought him to the ED around 2:30 PM on 02/12/17. In addition, he states around 1:30 PM, he became real hot and clammy, started sweating and having dizziness before coming here. Denied nausea, but had nausea later in the ED when I was interviewing patient, and had a bout of bilious emesis after NG tube placement. He had admitted to passing a little watery stool/diarrhea the day before presentation, which was his last BM. Admitted to a ~25 lbs weight loss from July 2016 until now. He admitted to a recent loss of appetite. Patient was admitted to the med/surg unit for small bowel obstruction that had developed possibly due to a mesenteric mass patient had in mid-abdomen found on CT scan of abdomen/pelvis that was likely secondary to radiation therapy in the past, and treated conservatively with NPO, IVF, bowel rest, NG tube, morphine 2 mg IV q2h PRN pain, zofran 4 mg q6h PRN nausea/vomiting. All home medications were held except for metoprolol and synthroid. Patient developed fever, and was also found to have a new subsegmental infiltrate above the dome of the L hemidiaphragm on CXR done on 02/14, which was presumed to be possible hospital acquired pneumonia and was treated with ciprofloxacin and metronidazole. Please see H&P for full details behind patient's abdominal pain. In the ED, they gave 2 mg morphine sulfate after which patient states his pain improved a bit and came down to about a 2/10. He was also administered a 500 mL bolus of normal saline, and then placed on normal saline IVF @ 100 mLs/hr. CBC was unremarkable except for Hgb 12 and Hct of 37. CMP was remarkable for BUN 21 , glucose of 116, alkaline phosphatase of 125. UA was unremarkable. GI panel was negative. Blood cx x 3 were negative. Urine cx showed no growth. Imaging Studies on Day of Admission: Abdominal Flat/Upright/PA Chest X-ray: No acute cardiopulmonary findings. Indwelling central venous catheter. Dilated small bowel loops with multiple air-fluid levels. R hip osteoarthritis. Impression: ileus vs. small bowel obstruction. CT abdomen/pelvis with IV contrast only: Findings compatible with small bowel obstruction. Wall thickening of the ascending colon, particularly at the hepatic flexure: is nonspecific and could represent colitis or possibly neoplasm. There is no ascites. No mesenteric adenopathy. 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 There is obstruction of the mid and proximal small bowel. The distal ileal loops are not dilated. There is an abnormal mucosal pattern of the colonic hepatic flexure which could represent neoplasm or colitis. No ascites or adenopathy. Unusual trabecular pattern of the sacrum which could be Paget's disease or metastatic disease. Portable CXR on 02/14/17 for Fever to rule out Pneumonia: New subsegmental infiltrate above the dome of the left hemidiaphragm. EKG was done and had shown sinus rhythm with a 1st degree AV block, LBBB at a rate of [address] Zeb Ceballos of General Surgery was consulted. In his consult note, he stated that the mesenteric mass was likely secondary to radiation treatment but apparently has not been biopsied. It seems that [place] surgeon who saw patient found the mass to be inoperable as it was involving the small bowel. He stated that patient had signs of partial vs. complete bowel obstruction in mainly the mid to proximal small bowel. He recommended to treat patient conservatively with IVF and antibiotics for possible enteritis/colitis, and NG tube decompression. He informed the patient that we would treat his SBO with conservative measures at first. If this did not resolve the SBO within 72 hours or 5 days, and the patient began to develop any signs of ischemia with peritonitis, lactic acid elevation, anything that would require urgent surgery, then he would likely have needed to be immediately transferred to a tertiary care facility. Patient's abdominal pain had improved, he was able to pass flatus and have several bowel movements. His diet was advanced to regular which was tolerated. Patient's SBO resolved with conservative measures alone. Progress note on date of discharge: 02/15/17 Subjective: Patient seen and examined at bedside. Denies fevers, chills, dizziness, headache , chest pain, SOB, cough, nausea, vomiting, diarrhea. Admits to passing flatus and having several bowel movements. Denies abdominal discomfort and pain. Admits to feeling better today. Objective: Vitals: Please see below. Physical Exam: General Exam: pleasant elderly male, no acute distress, oriented times three ENT EXAM: Positive: normocephalic, atraumatic Neck Exam: Positive: Supple Chest Exam: Positive: Clear to auscultation Heart Exam: Positive: Regular rate and rhythm, Normal S1, S2 Abdominal Exam: +hard palpable midline mass, bowel sound present, nontender, nondistended Extremity Exam: Negative: Clubbing, Cyanosis, Edema Skin Exam: No Rashes or lesions seen Neuro Exam: no focal neurologic deficits appreciated bilaterally Psych Exam: Appropriate mood & affect, Memory Intact, Alert and oriented x 3 Labs: Please see below. Remarkable for Hgb 9.1, Hct 29.6, RBC 3.16, WBC 3.4. Assessment: This is an 81 yo M with a PMH of Nonhodgkin's lymphoma with radiation/ chemotherapy in 2010 to R neck lymph node in remission, CAD status-post stent in 2006, hypothyroidism, and possible unknown medical hx as his medical records are in [place]. [facility] [place]. He presented to [facility] ED for constant unremitting abdominal pain. CT scan findings were consistent with small bowel obstruction. 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 The distal ileal loops were not dilated. There was an abnormal mucosal pattern of the colonic hepatic flexure which could represent neoplasm or colitis. No ascites or adenopathy were seen. The mass was likely secondary to radiation treatment but apparently has not been biopsied. It seems that [place] surgeon who saw patient found the mass to be inoperable as it was involving the small bowel. Patient was admitted for treatment for unrelenting abdominal pain secondary to partial vs. complete small bowel obstruction mainly in the mid to proximal small bowel. Later developed fever of 101.5 on 02/13 and found to have a new subsegmental infiltrate above the dome of the L hemidiaphragm suggestive of hospital acquired pneumonia on CXR on 02/14. Disposition: Medically and hemodynamically stable. Follow-up: Recommended with PCP in [place]: Dr. Shanita Benites within 3-7 days, with oncologist in 1-2 weeks, and with cook fast food as necessary. Activity: As tolerated. Diet: Low fat. Medications on discharge: Patient is to take ciprofloxacin for 9 days and bacid for 15 days, use zofran for nausea, tylenol for fever/pain. Please see below for full medication list. Cc: Dr. Shanita Benites ([phone]) in [place], [place] Time spent on discharge: 35 minutes Vital Signs/I&Os Vital Signs Date Time Temp Pulse Resp B/P (MAP) Pulse Ox O2 Delivery O2 Flow Rate FiO2 02/15/17 10:30 75 94/52 02/15/17 10:30 Room Air 02/15/17 06:00 97.3 16 95 Microbiology Microbiology 02/14/17 Blood Culture - Preliminary, Resulted No Growth after 48 hours. All Specime... 02/12/17 Blood Culture - Preliminary, Resulted No Growth after 72 hours. All specime... 02/12/17 Blood Culture - Preliminary, Resulted No Growth after 72 hours. All specime... 02/14/17 Gastrointestinal Tract Panel (PCR) - Final, Complete 02/12/17 Urine Culture - Final, Complete Discharge Medications Scheduled (Preservision Areds) 1 Cap Cap, 1 CAP PO DAILY, (Reported) Aspirin (Ecotrin Low Strength) 81 Mg Tab, 81 MG PO QHS, (Reported) Atorvastatin Calcium (Lipitor) 10 Mg Tab, 10 MG PO QHS, (Reported) Ciprofloxacin HCl (Ciprofloxacin HCl) 750 Mg Tab, 750 MG PO Q12H Please complete antibiotic course for 9 days. Take 1 tablet every 12 hours for possible pneumonia/abdominal infection. Clopidogrel Bisulfate (Plavix) 75 Mg Tab, 75 MG PO DAILY, (Reported) Cyanocobalamin (Vitamin B12) 500 Mcg Tab, 500 MCG PO DAILY, (Reported) Fish Oil (Fish Oil) 1,000 Mg Cap, 1,000 MG PO DAILY, (Reported) Folic Acid (Folic Acid) 1 Mg Tab, 1 MG PO DAILY, (Reported) Lactobacillus Acidophilus (Bacid) 1 Tab Tab, 1 TAB PO Q12H Take with ciprofloxacin antibiotic. Levothyroxine Sodium (Synthroid) 50 Mcg Tab, 50 MCG PO DAILY, (Reported) Metoprolol Succinate (Metoprolol Succinate ER) 25 Mg Tab, 12.5 MG PO DAILY, ( Reported) Niacin (Niacin) 500 Mg Tab, 500 MG PO DAILY, (Reported) Vitamin D (Vitamin D) 1,000 Unit Cap, 1,000 UNIT PO DAILY, (Reported) Vitamin E (Vitamin E Complex) 400 Unit Cap, 400 UNIT PO DAILY, (Reported) Scheduled PRN Acetaminophen (Tylenol) 325 Mg Tab, 325 MG PO Q6HP PRN for PAIN / FEVER Please take as needed for pain/fever. Do not exceed more than 4 tablets a day. Ondansetron HCl (Zofran) 4 Mg Tab, 4 MG PO Q6HP PRN for 10 take for nausea as needed every 6 hours. do not exceed more than 4 tablets a day. Allergies Coded Allergies: No Known Allergies (Unverified , 02/12/17) GME ATTESTATION GME ATTESTATION My preceptor for this patient encounter was Dr. Zion Olivier, and was physically present in the building during the encounter and was fully available. As needed, all aspects of the patient interview, examination, medical decision making process, and medical care plan development were reviewed and approved by the preceptor. Preceptor is aware and concurs with the plan as stated in the body of this note and will attest to such by his/her cosignature. JESSENIA PANDYA OGME-1 Feb 17, 2017 06:11
== END 2017-02-15 12:35 | disposition home or self-care (01) | DRG 388 ==
LOC: M ED 14:54 → M ED INP 18:05 → M MSPAV 20:18
PROVIDERS: ADMIT Internal Medicine Nephrology; ATTEND Hospitalist
DX: K56.60 Unspecified intestinal obstruction (principal); J18.9 Pneumonia, unspecified organism; R19.09 Other intra-abdominal and pelvic swelling, mass and lump; I25.10 Atherosclerotic heart disease of native coronary artery without angina pectoris; E03.9 Hypothyroidism, unspecified; E55.9 Vitamin D deficiency, unspecified; E53.8 Deficiency of other specified B group vitamins; Z85.72 Personal history of non-Hodgkin lymphomas; Z79.899 Other long term (current) drug therapy; Z79.82 Long term (current) use of aspirin; Z87.891 Personal history of nicotine dependence; M16.11 Unilateral primary osteoarthritis, right hip